=== PATIENT | male | born 1965 | race Caucasian/White ===

== ENCOUNTER 2017-09-12 17:49 | Observation (INO) ==
--- NOTE | 2017-09-12 18:01 | Emergency Department Note ---
Disposition Forms: ED Satisfaction Letter Back Pain HPI - General Chief Complaint: ED Back Pain/Injury Stated Complaint: BACK PAIN Time Seen by Provider: 09/12/17 17:57 - Related Data Home Medications Medication Instructions Recorded Confirmed Losartan [Cozaar] 12.5 mg PO DAILY 11/04/15 11/04/15 Atorvastatin 12/20/16 metFORMIN 12/20/16 Previous Rx's Medication Instructions Recorded Doxycycline 100 mg PO BID #14 capsule 12/20/16 GuaiFENesin/Dextromethorphan 5 ml PO Q6HR PRN #120 syrup 12/20/16 [Robitussin/DM] methylPREDNISolone [Medrol] 4 mg PO TAPER #21 tablet 12/20/16 Docusate Sodium [Colace] 100 mg PO BID PRN #20 capsule 08/22/17 methylPREDNISolone [Medrol] 1 each PO DAILY #1 pack 08/22/17 Allergies Allergy/AdvReac Type Severity Reaction Status Date / Time No Known Allergies Allergy Verified 12/20/16 12:57 Past Medical History - Past Medical History Medical history: Reports: other (spinal stenosis - multiple herniated discs) Surgical history: Reports: other (ablation of nerve in back 13 months ago) Psychiatric history: Reports: no psych history - Social History Smoking Status: Current every day smoker Smokeless Tobacco Status: No Alcohol use: Reports: none Drug use: Reports: marijuana
[2017-09-12] MEDS ORDERED: KETAMINE IVPB ONE (18:25)
[2017-09-12] MEDS ORDERED: 0.9 % Sodium Chloride 1,000 ML IVC ONE (18:25)
[2017-09-12] MEDS ORDERED: SODIUM CHLORIDE 0.9% IVPB ONE (18:25)
[2017-09-12] MEDS ORDERED: Dexamethasone 4 MG/ML VIAL IVP ONE (18:35)
[2017-09-12 18:47] LABS: Basophils % 0.5 %; Eosinophils # 0.2 K/mcL (0.0-0.6); Eosinophils % 2.4 %; Hematocrit 46.9 % (37.5-50.1); Hemoglobin 16.8 g/dL (12.9-16.9); Immature Granulocytes % 0.2 % (0-4); Lymphocytes # 2.5 K/mcL (0.6-4.6); Lymphocytes % 30.2 %; Mean Corpuscular HGB Conc 35.8 g/dL (31.6-35.5); Mean Corpuscular Hemoglobin 30.6 pg (28.0-33.3); Mean Corpuscular Volume 85.4 fL (83.0-100.0); Mean Platelet Volume 9.1 fL (9.4-12.4); Monocytes # 0.5 K/mcL (0.0-1.3); Monocytes % 6.3 %; Neutrophils # 5.1 K/mcL (1.6-8.9); Platelet Count 242 K/mcL (140-400); Red Blood Count 5.49 M/mcL (4.19-5.50); Red Cell Distribution Width 12.8 % (11.5-14.5); Segmented Neutrophils % 60.4 %
--- NOTE | 2017-09-12 18:47 | Emergency Department Note ---
Disposition Clinical Impression: Spinal stenosis Qualifiers: Spinal region: lumbar Neurogenic claudication status: without neurogenic claudication Qualified Code(s): M48.061 - Spinal stenosis, lumbar region without neurogenic claudication Back pain Qualifiers: Back pain location: low back pain Chronicity: acute Back pain laterality: midline Sciatica presence: with sciatica Sciatica laterality: sciatica of right side Qualified Code(s): M54.41 - Lumbago with sciatica, right side Disposition: Admitted As Inpatient Condition: Undetermined Referrals: Walt Killian DO [Primary Care Provider] - Forms: ED Satisfaction Letter Time of Disposition: 19:21 Back Pain HPI - General Chief Complaint: ED Back Pain/Injury Stated Complaint: BACK PAIN Time Seen by Provider: 09/12/17 17:57 Source: patient Mode of arrival: wheelchair Limitations: no limitations Nursing Notes Reviewed: Yes Vital Signs Reviewed: Yes - History of Present Illness HPI Narrative: 52-year-old male with history of chronic back pain arrives to the emergency department with complaint of severe back pain. The patient had an MRI performed 8 days ago and was called today by pain specialist who instructed patient to come to the emergency department immediately for admission. The patient denies any saddle anesthesias, urinary retention, bowel incontinence. The patient denies any other complaints at this time. He does have moderate to severe canal stenosis but no signs of cauda equina syndrome. - Related Data Home Medications Medication Instructions Recorded Confirmed Losartan [Cozaar] 12.5 mg PO DAILY 11/04/15 11/04/15 Atorvastatin 12/20/16 metFORMIN 12/20/16 Previous Rx's Medication Instructions Recorded Doxycycline 100 mg PO BID #14 capsule 12/20/16 GuaiFENesin/Dextromethorphan 5 ml PO Q6HR PRN #120 syrup 12/20/16 [Robitussin/DM] methylPREDNISolone [Medrol] 4 mg PO TAPER #21 tablet 12/20/16 Docusate Sodium [Colace] 100 mg PO BID PRN #20 capsule 08/22/17 methylPREDNISolone [Medrol] 1 each PO DAILY #1 pack 08/22/17 Allergies Allergy/AdvReac Type Severity Reaction Status Date / Time No Known Allergies Allergy Verified 12/20/16 12:57 All systems ED: reviewed and negative except as stated. Constitutional: Denies: fever, chills, weakness ENT ED: Denies: dysphagia Cardiovascular: Denies: chest pain Respiratory: Denies: dyspnea Gastrointestinal: Denies: abdominal pain, nausea, vomiting Genitourinary: Denies: urgency, dysuria Musculoskeletal: Reports: back pain. Denies: neck pain, arthralgia, myalgia Integumentary: Denies: rash Neurological: Reports: paresthesias. Denies: headache, numbness, confusion, abnormal gait Past Medical History - Past Medical History Attestation: Yes The following information was validated with the patient. Source: patient, old records reviewed Medical history: Reports: COPD, diabetes, hyperlipidemia, hypertension Surgical history: Reports: other (ablation of nerve in back 13 months ago) Psychiatric history: Reports: anxiety - Social History Smoking Status: Current every day smoker Smokeless Tobacco Status: No Alcohol use: Reports: rarely Drug use: Reports: marijuana Physical Exam - General Limitations: no limitations General appearance: alert, in distress (Due to pain) - Head Head exam: atraumatic, normocephalic, normal inspection - Eye Eye exam: Present: normal appearance, PERRL, EOMI - ENT ENT exam: normal exam, normal oropharynx, mucous membranes moist - Neck Neck exam: Present: normal inspection, full ROM, trachea midline - Chest Chest inspection: Present: normal inspection, symmetric chest wall rise - Respiratory Respiratory exam: Present: normal lung sounds bilaterally - Cardiovascular Cardiovascular exam: Present: regular rate, normal rhythm, normal heart sounds - Abdominal Exam Abdominal exam: Present: soft, Non-Tender. Absent: tenderness, distention, guarding, rebound, rigidity - Extremities Exam Extremities exam: Present: normal inspection, full ROM. Absent: tenderness, pedal edema - Back Exam Back exam: Present: normal inspection, full ROM. Absent: tenderness - Neurological Exam Neurological exam: Present: alert, oriented X3, CN II-XII intact, normal gait - Expanded Neurological Exam Patient oriented to: Present: person, place, time Speech: Present: fluid speech Cranial nerves: EOM function (II, III, IV, ): Normal, facial sensation (V): Normal, facial palsy (VII): Normal Cerebellar function: normal gait Motor strength - LUE: 4/5 Motor strength - RUE: 4/5 Motor strength - LLE: 4/5 Motor strength - RLE: 4/5 Sensory exam upper extremity: light touch: Normal Sensory exam lower extremity: light touch: Normal Coma Scale Eye Opening: Spontaneous Coma Scale Motor Response: Obeys Commands Coma Scale Verbal Response: Oriented Coma Scale Total: 15 - Skin Skin exam: Present: warm, dry, intact, normal color Course - Consultations Consultation #1: We spoke to Dr. Alan in spinal surgery who stated that it is not a surgical emergency but he recommended admission for pain control. We will admit the patient to the hospital at this time for further workup and care. Patient made aware and agrees to plan. No further questions or concerns noted at this time. Time: 19:14 Vital Signs Temperature 98 F 09/12/17 17:57 Pulse Rate 96 09/12/17 17:57 Respiratory Rate 16 09/12/17 17:57 Blood Pressure 117/81 09/12/17 17:57 O2 Sat by Pulse Oximetry 92 09/12/17 17:57 Temperature 98 F 09/12/17 17:57 Pulse Rate 90 09/12/17 18:55 Respiratory Rate 20 09/12/17 18:55 Blood Pressure 114/81 09/12/17 18:55 O2 Sat by Pulse Oximetry 93 09/12/17 18:55 Oxygen Delivery Oxygen Delivery Room Air Back Pain/Injury - MDM Narrative Medical decision making narrative: Accepted by Dr. Rivera. - Medical Records Medical records reviewed: Yes I reviewed the patient's medical records. - Lab Data Lab results reviewed: Yes I reviewed the patient's lab results. Result diagrams: 09/12/17 18:25 09/12/17 18:25 Lab Results 09/12/17 09/12/17 Range/Units 18:25 18:25 WBC 8.4 (4.3-11.1) K/mcL RBC 5.49 (4.19-5.50) M/mcL Hgb 16.8 (12.9-16.9) g/dL Hct 46.9 (37.5-50.1) % MCV 85.4 (83.0-100.0) fL MCH 30.6 (28.0-33.3) pg MCHC 35.8 H (31.6-35.5) g/dL RDW 12.8 (11.5-14.5) % Plt Count 242 (140-400) K/mcL MPV 9.1 L (9.4-12.4) fL Immature Gran % 0.2 (0-4) % Seg Neutrophils % 60.4 % Lymphocytes % 30.2 % Monocytes % 6.3 % Eosinophils % 2.4 % Basophils % 0.5 % Neutrophils # 5.1 (1.6-8.9) K/mcL Lymphocytes # 2.5 (0.6-4.6) K/mcL Monocytes # 0.5 (0.0-1.3) K/mcL Eosinophils # 0.2 (0.0-0.6) K/mcL Basophils # 0.0 (0.0-0.2) K/mcL Sodium 135 L (136-145) mEq/L Potassium 4.5 (3.5-5.1) mEq/L Chloride 103 (98-107) mEq/L Carbon Dioxide 24 (23-29) mEq/L BUN 13 (6-20) mg/dL Creatinine 0.81 (0.70-1.30) mg/dL Est GFR ( Amer) > 60 (> 60) Est GFR (Non-Af Amer) > 60 (> 60) BUN/Creatinine Ratio 16 (6-26) Glucose 115 H (70-105) mg/dL Calculated Osmolality 281 (280-300) Calcium 10.2 (8.6-10.3) mg/dL Attestation Statement - Attestation Attestation: I examined this patient and my medical decision-making was reviewed with the Resident Physician. I agree with the documented findings, disposition and treatment plan as described except to the extent set forth below. Findings consistent with back pain. No findings of cauda equina at this time. There is some compressive etiologies on MRI and we will proceed with admission for pain control. Ketamine was given for pain control. Patient is neuro intact at this time and a consultation has been initiated with Dr. Alan and spine surgery who agrees the patient has fine for evaluation tomorrow and findings on MRI does not represent surgical emergency at this time.
[2017-09-12 19:07] LABS: BUN/Creatinine Ratio 16 (6-26); Blood Urea Nitrogen 13 mg/dL (6-20); Calcium 10.2 mg/dL (8.6-10.3); Carbon Dioxide 24 mEq/L (23-29); Chloride 103 mEq/L (98-107); Glucose 115 mg/dL (70-105); Osmolality,Calculated 281 (280-300); Potassium 4.5 mEq/L (3.5-5.1); Sodium 135 mEq/L (136-145); eGFR For Non-African Americans > 60 (> 60)
[2017-09-12] MEDS ORDERED: Naloxone 0.4 MG/ML INJ IVP PRN (21:30)
[2017-09-12] MEDS ORDERED: Ibuprofen 400 MG TABLET PO PRN (21:30)
[2017-09-12] MEDS ORDERED: *HR* HYDROcodone/Acet 7.5/325 mg TABLET PO PRN (21:32)
--- NOTE | 2017-09-12 21:33 | Internal Med History&Physical ---
<Walt Killian - Last Filed: 09/12/17 21:55> Date of Encounter: 09/12/17 Time of Encounter: 21:32 Internal Medicine - H&P: HPI Chief complaint: back pain Admitted From: Emergency Dept Plans for Post Hospital Care: Home History of present illness: Mr. Wen is a 52 year old male with past medical history of COPD, diet- controlled diabetes mellitus, hyperlipidemia, hypertension who presents the emergency department complaining of low back pain. He states has been present for approximately 2 weeks although he does have a history of chronic back pain. He was sent from pain management due to concerning findings on MRI obtained on 09/05/17. He states his pain has been worse than normal and he was given 7.5 mg of Percocet and and has not been relieving his pain. He does have a history of multiple ablations in the past most recently 2 years ago. He states he does have difficulty walking and has been essentially bedbound the last 2 weeks however he states it is due to pain but not numbness, tingling, weakness. He states the back pain is located in the lower back bilaterally with radiation down bilateral legs. He does describe the pain as a tingling/burning pain. When he stays still his pain is okay however exacerbated with movement of any kind. Denies any symptoms of chest pain, shortness breath, nausea, vomiting, numbness, tingling. In the emergency department, vitals and labs grossly unremarkable. Dr. Alan was made aware and has agreed to see the patient in the morning. Past medical history as above Past surgical history including ablations Social history: Patient is currently attempting smoking cessation. Denies alcohol or drug use except for occasional marijuana Past Med Surg Social Fam HX - Past Medical History Medical history: COPD, diabetes, hyperlipidemia, hypertension Additional medical history: spinal stenosis Psychiatric history: anxiety - Past Surgical History Surgical History: other (ablation of nerve in back 13 months ago) Additional surgical history: laser surgeries - Social History Smoking Status: Current every day smoker Smokeless Tobacco Status: No Alcohol use: rarely Drug use: marijuana - Family History Father Living Status: Cause of : CHF Hx Family Cardiac Disorders: Yes (CHF) Internal Medicine - H&P: Meds Atorvastatin [Lipitor] 40 mg PO HS 09/12/17 [History] Cyclobenzaprine HCl 5 mg PO TID PRN 09/12/17 [History] Losartan [Cozaar] 25 mg PO DAILY 09/12/17 [History] Meloxicam [Meloxicam] 15 mg PO DAILY 09/12/17 [History] metFORMIN [Glucophage] 500 mg PO BIDWM 09/12/17 [History] 3 Allergy/AdvReac Type Severity Reaction Status Date / Time No Known Allergies Allergy Verified 09/12/17 19:33 All Systems PM: A 10-system review of systems was performed and is negative for pertinent findings except as documented above in the HPI. - Constitutional Constitutional: as per HPI, no fatigue, no fever(s) - Cardiovascular Cardiovascular ROS IM: no chest pain, no dyspnea, no dyspnea on exertion, no edema - Respiratory Respiratory: no dyspnea, no hemoptysis, no dyspnea on exertion, no wheezing - Gastrointestinal Gastrointestinal: no abdominal pain, no nausea, no vomiting - Musculoskeletal Musculoskeletal ROS IM: back pain, no joint swelling, no limited range of motion , no muscle weakness, no numbness, no tingling - Integumentary Integumentary IM: no rash - Neurological Neurological ROS: radicular pain, no focal weakness, no numbness, no tingling, no weakness - Constitutional Vitals: Temp Pulse Resp BP Pulse Ox 98 F 90 20 120/82 93 09/12/17 17:57 09/12/17 19:30 09/12/17 19:55 09/12/17 19:55 09/12/17 19:30 Exam: Gen.: Vitals noted. No acute distress. AAOx3. Resting comfortably in bed HEENT: PERRL/EOMI, oropharynx clear, Normocephalic, atraumatic, MMM Cardiac: RRR, no murmur, +S1/S2 Pulmonary: CTA bilaterally, no wheezes, rales or rhonchi, equal chest expansion Abdomen: soft, nontender, BS noted, no guarding, no rebound. MSK: ROM intact, no joint swelling noted, muscle strength 4/5 in lower extremities. Extremities: no BLE edema, nontender calf, no cyanosis or clubbing Neuro: A&Ox3, moves all extremities, no focal deficits. Neurologically intact including sensation, reflexes lower extremities. Psych: Appropriate mood and behavior Internal Med - H&P Results - Labs CBC & Chem 7: 09/12/17 18:25 09/12/17 18:25 - Assessment and plan (1) Spinal stenosis Current Visit: Yes Status: Acute Assessment and plan: - Known history of chronic low back pain secondary to spinal stenosis - Patient denies previous surgeries over has had multiple ablations most recently approximately 2 years ago - MRI was obtained by pain management on 09/05/17 which shows congenital spinal canal stenosis, L1 and L2 central disc extrusion with inferior migration, mild to moderate stenosis of L2-L3 and L3-L4, moderate stenosis L4-L5. Possible impingement of the left L2 nerve root - Patient is neurologically intact - Dr. Alan was consulted in the emergency department, will see patient tomorrow Plan - Pain control - ADA diet with NPO midnight - Ortho consult as above Qualifiers: Spinal region: lumbar Neurogenic claudication status: without neurogenic claudication Qualified Code(s): M48.061 - Spinal stenosis, lumbar region without neurogenic claudication (2) Back pain Current Visit: Yes Status: Acute Assessment and plan: as above Qualifiers: Back pain location: low back pain Chronicity: acute Back pain laterality : bilateral Sciatica presence: with sciatica Sciatica laterality: sciatica of right side Qualified Code(s): M54.41 - Lumbago with sciatica, right side (3) Diabetes mellitus Current Visit: Yes Status: Acute Assessment and plan: - Known type II diabetic which has been well controlled with metformin - Blood sugar on presentation 114 - Hemoglobin A1c of 7.1% on 09/05/17 - Sliding Scale insulin, ADA diet. NPO midnight Qualifiers: Diabetes mellitus type: type 2 Diabetes mellitus correction insulin use: without correction use Diabetes mellitus complication status: without complication Qualified Code(s): E11.9 - Type 2 diabetes mellitus without complications (4) DVT prophylaxis Current Visit: Yes Status: Acute Assessment and plan: - Heparin 5000 units every 12 hours (5) Hypertension Current Visit: Yes Status: Chronic Assessment and plan: Well-controlled, continue home medications Qualifiers: Hypertension type: essential hypertension Qualified Code(s): I10 - Essential (primary) hypertension - Time Spent With Patient Total time spent is greater than 50% in coordination of care (as documented) at patient's floor/unit and/or counseling patient: <Yang Rivera - Last Filed: 09/12/17 22:22> Date of Encounter: 09/12/17 Internal Medicine - H&P: HPI History of present illness: Mr. Wen is a 52 year old male All Systems PM: A 10-system review of systems was performed and is negative for pertinent findings except as documented above in the HPI. - Constitutional Vitals: Temp Pulse Resp BP Pulse Ox 98 F 90 20 120/82 93 09/12/17 17:57 09/12/17 19:30 09/12/17 19:55 09/12/17 19:55 09/12/17 19:30 Internal Med - H&P Results - Labs CBC & Chem 7: 09/12/17 18:25 09/12/17 18:25 - Attending Attestation I have seen and examined the patient with Dr. Killian and agree with his/ her assessment and plan. 52-year-old male with known history of spinal stenosis status post ablation and epidural injection, with recent MRI done on , presented to the ED with intractable back pain. He states that he was advised to come to ED and "admit himself" by his spine surgeon. No LE weakness/numbness, bowel/urinary incontinence, saddle anesthesia. LAbs unremarkable. Resume pain meds and add oxycodone when necessary for severe pain. Consult placed to spine surgery. Yang Rivera MD - Assessment and plan (1) Spinal stenosis Current Visit: Yes Status: Acute Qualifiers: Spinal region: lumbar Neurogenic claudication status: without neurogenic claudication Qualified Code(s): M48.061 - Spinal stenosis, lumbar region without neurogenic claudication (2) Back pain Current Visit: Yes Status: Acute Qualifiers: Back pain location: low back pain Chronicity: acute Back pain laterality : bilateral Sciatica presence: with sciatica Sciatica laterality: sciatica of right side Qualified Code(s): M54.41 - Lumbago with sciatica, right side (3) DVT prophylaxis Current Visit: Yes Status: Acute (4) Diabetes mellitus Current Visit: Yes Status: Acute Qualifiers: Diabetes mellitus type: type 2 Diabetes mellitus correction insulin use: without correction use Diabetes mellitus complication status: without complication Qualified Code(s): E11.9 - Type 2 diabetes mellitus without complications (5) Hypertension Current Visit: Yes Status: Chronic Qualifiers: Hypertension type: essential hypertension Qualified Code(s): I10 - Essential (primary) hypertension - Time Spent With Patient Total time spent is greater than 50% in coordination of care (as documented) at patient's floor/unit and/or counseling patient:
[2017-09-12] MEDS ORDERED: *HR* Dextrose 50 % in Water (Syg) 50 ML SYRINGE IVP PRN (22:03)
[2017-09-12] MEDS ORDERED: Dextrose Gel 15 GM/37.5 ML TUBE PO PRN ×2 (22:03)
[2017-09-12] MEDS ORDERED: D5% in Water 1,000 ML IVC PRN (22:03)
[2017-09-12] MEDS ORDERED: Nicotine 2 MG GUM BC PRN (22:13)
[2017-09-12] MEDS: *HR* OxyCODONE Immed Rel 5 MG TABLET PO PRN (23:26)
[2017-09-13] MEDS ORDERED: *HR* Heparin 5,000 UNIT/ML VIAL SQ SCH (06:00)
[2017-09-13] MEDS: *HR* OxyCODONE Immed Rel 5 MG TABLET PO PRN (07:31)
[2017-09-13] MEDS: Insulin LISPRO 300 UNITS/3 ML VIAL SQ SCH ×2 (08:36→11:03)
--- NOTE | 2017-09-13 08:37 | Spinal Consult Note ---
Date of Encounter: 09/13/17 Time of Encounter: 08:34 Assessment and Plan (1) Lumbar stenosis without neurogenic claudication Current Visit: Yes Status: Chronic On exam he is sitting upright in bed awake and alert in moderate distress secondary to back pain. Afebrile vital signs stable. He is neurovascularly intact with regard to his bilateral lower extremities. He fires all lower extremity motor groups with good strength. His hips move symmetrically. There is no clonus. Sensation is intact to light touch. All pulses are intact distally. MRI examination of the lumbar spine dated 09/05/2017 reveals multilevel degenerative changes. There is severe stenosis at L1-2 in part due to a disc extrusion. There is multilevel foraminal stenosis seen distally. Impression: 1) lumbar stenosis 2) lumbar radiculopathy Plan: He has done well with lumbar epidural steroid injections and medial branch blocks at previously. He has an interventional procedure with Dr. Malave scheduled for tomorrow. I would discharge him with analgesic medications and plan on his medial branch block as scheduled. He is going to follow-up in my office in 2 weeks. Patient understands if he does not get any relief with interventional treatments he would be an excellent candidate for lumbar decompression in the form of a laminectomy. Patient understands and is amenable to the plan. (2) Lumbar radiculopathy Current Visit: Yes Status: Chronic History of Present Illness Chief complaint: "back pain and pain int he legs" HPI: Mr. Wen is a 52 year old male Well-known to the [facility] whose had long-standing back pain radiating into his bilateral lower extremities intermittently. He had a multitude of interventional treatments including lumbar epidural steroid injections and medial branch blocks by Dr. Elie Malave. He had a recent acute episode in the past several days where he had severe back pain radiating to the lower extremities with any movement or attempts at ambulation. He denies bowel bladder symptomatology or weakness in the lower extremities. Due to his intractable pain he was sent to the emergency department by Dr. Malave for evaluation and admitted for pain control. He has planned medial branch block tomorrow as an outpatient basis with Dr. Malave. He denies any fevers chills. Past Med Surg Social Fam HX - Past Medical History Medical history: COPD, diabetes, hyperlipidemia, hypertension Additional medical history: spinal stenosis Psychiatric history: anxiety - Past Surgical History Surgical History: other (ablation of nerve in back 13 months ago) Additional surgical history: laser surgeries - Social History Smoking Status: Current every day smoker Packs per day: 1 Smokeless Tobacco Status: No Alcohol use: rarely Drug use: marijuana - Family History Father Living Status: Cause of : CHF Hx Family Cardiac Disorders: Yes (CHF) Medications and Allergies Atorvastatin [Lipitor] 40 mg PO HS 09/12/17 [History] Cyclobenzaprine HCl 5 mg PO TID PRN 09/12/17 [History] Losartan [Cozaar] 25 mg PO DAILY 09/12/17 [History] Meloxicam [Meloxicam] 15 mg PO DAILY 09/12/17 [History] metFORMIN [Glucophage] 500 mg PO BIDWM 09/12/17 [History] 3 Allergy/AdvReac Type Severity Reaction Status Date / Time No Known Allergies Allergy Verified 09/12/17 19:33 Results - Labs Result Diagrams: 09/12/17 18:25 09/12/17 18:25 Labs: Abnormal lab results MCHC 35.8 g/dL (31.6-35.5) H 09/12/17 18:25 MPV 9.1 fL (9.4-12.4) L 09/12/17 18:25 Sodium 135 mEq/L (136-145) L 09/12/17 18:25 Glucose 115 mg/dL (70-105) H 09/12/17 18:25 POC Glucose 168 mg/dL (70-99) H 09/12/17 23:55 All other labs normal. Consult Discharge Plan - Plan Referrals: Walt Killian DO [Primary Care Provider] -
--- NOTE | 2017-09-13 11:39 | Discharge Summary ---
- NOTES TO OUTPATIENT PROVIDER Notes to Outpatient Provider: Acute on chronic low back pain, spinal stenosis, to get ablation procedure tomorrow with pain management; Date of Encounter: 09/13/17 Time of Encounter: 11:33 - Discharge Diagnosis (1) Spinal stenosis Priority: Primary Status: Acute Qualifiers: Spinal region: lumbar Neurogenic claudication status: without neurogenic claudication Qualified Code(s): M48.061 - Spinal stenosis, lumbar region without neurogenic claudication (2) Diabetes mellitus Priority: Secondary Status: Chronic Qualifiers: Diabetes mellitus type: type 2 Diabetes mellitus residential insulin use: without watermelon inspector use Diabetes mellitus complication status: without complication Qualified Code(s): E11.9 - Type 2 diabetes mellitus without complications (3) Hypertension Priority: Secondary Status: Chronic Qualifiers: Hypertension type: essential hypertension Qualified Code(s): I10 - Essential (primary) hypertension (4) Tobacco abuse Priority: Secondary Status: Chronic (5) COPD (chronic obstructive pulmonary disease) Priority: Secondary Status: Chronic Qualifiers: COPD type: unspecified COPD Qualified Code(s): J44.9 - Chronic obstructive pulmonary disease, unspecified Hospital course: Mr. Wen is a 52 year old male with chronic back pain and spinal stenosis, who was admitted with acute severe low back pain. He was also referred by Pain management due to abnormal MRI results. MRI L-spine from 09/05/17 showed congenital spinal canal stenosis, central disc extrusion at L1-2, possible impingement of L2 nerve root, mil-moderate stenosis at L2-3, L3-4 and L4-5. He was given supportive care and pain control. Spine surgery was consulted and recommended discharge home with analgesics, for scheduled medial branch ablation procedure tomorrow with Pain Management. He will be evaluated for possible laminectomy in the future if ablation fails. He is otherwise medically stable. Discharge discussed with: patient, nurse - Time Spent with Patient Total time spent providing and/or coordinating discharge services: Greater than 30 minutes (40 min) - Discharge Medications Prescriptions: OxyCODONE Immed Rel [Roxicodone 5 MG] 10 mg PO Q6HR PRN 5 Days #15 tablet PRN Reason: Severe Pain Home Medications: Atorvastatin [Lipitor] 40 mg PO HS 09/12/17 [History] Cyclobenzaprine HCl 5 mg PO TID PRN 09/12/17 [History] Losartan [Cozaar] 25 mg PO DAILY 09/12/17 [History] Meloxicam 15 mg PO DAILY 09/12/17 [History] metFORMIN [Glucophage] 500 mg PO BIDWM 09/12/17 [History] OxyCODONE Immed Rel [Roxicodone 5 MG] 10 mg PO Q6HR PRN 5 Days #15 tablet [Rx] Allergies/Adverse Reactions: 3 Allergy/AdvReac Type Severity Reaction Status Date / Time No Known Allergies Allergy Verified 09/12/17 19:33 Date of admission: 09/12/17 19:29 Primary care physician: Walt Killian DO Consults: 09/12/17 23:29 Consult to Orthopedic Surgery [CONS] Routine Consulting Provider: [facility] Reason for Consult: spinal stenosis, patient of Dr. Malave scheduled for intervention this Call Completed: Yes Discharging clinician: Heidy Thornton Anticipated date of discharge: 09/13/17 - Constitutional Vitals: Temp Pulse Resp BP Pulse Ox 99.2 F 83 16 137/84 91 09/13/17 06:43 09/13/17 06:48 09/13/17 06:48 09/13/17 06:48 09/13/17 06:48 General appearance: Present: mild distress (moderate distress due to pain), A&O X 3 - Cardiovascular Cardiovascular exam: Present: RRR, +S1, +S2. Absent: diastolic murmur, gallop, rubs, systolic murmur - Patient Status Disposition: Home, Self-Care Condition: Fair Functional capacity at discharge: independent ambulation Overall status at discharge: patient is progressing back to baseline - Discharge Instructions Follow Up With: Burak Alan Jr, MD [Partnered Physician] - 09/28/17 1:15 pm Walt Killian DO [Primary Care Provider] - Additional Instructions: F/up with on 09/14/2017 for spinal ablation procedure - Diet and Activity Activity: increase activity as tolerated Diet: low fat, low cholesterol, low salt diet
[2017-09-13 12:00] VITALS: BP 126/79
== END 2017-09-13 14:56 | disposition home or self-care (01) ==
LOC: 3NENU 17:49 → EMEROO 17:49 → SUATTDRO 19:29 → 3NENU 19:56
PROVIDERS: ADMIT Internal Medicine; ATTEND Internal Medicine

== ENCOUNTER 2017-10-02 08:18 | Observation (INO) ==
[2017-10-02] MEDS ORDERED: CeFAZolin Syr 2,000MG/20 ML 2,000 MG/20 ML SYRINGE IVPB ONE (09:45)
[2017-10-02 10:43] LABS: Basophils # 0.1 K/mcL (0.0-0.2); Basophils % 0.9 %; Eosinophils # 0.2 K/mcL (0.0-0.6); Eosinophils % 2.2 %; Hematocrit 46.9 % (37.5-50.1); Hemoglobin 16.3 g/dL (12.9-16.9); Immature Granulocytes % 0.1 % (0-4); Lymphocytes # 2.3 K/mcL (0.6-4.6); Lymphocytes % 34.1 %; Mean Corpuscular HGB Conc 34.8 g/dL (31.6-35.5); Mean Corpuscular Volume 89.3 fL (83.0-100.0); Mean Platelet Volume 9.4 fL (9.4-12.4); Monocytes # 0.6 K/mcL (0.0-1.3); Monocytes % 8.1 %; Neutrophils # 3.7 K/mcL (1.6-8.9); Platelet Count 244 K/mcL (140-400); Red Blood Count 5.25 M/mcL (4.19-5.50); Red Cell Distribution Width 12.6 % (11.5-14.5); Segmented Neutrophils % 54.6 %
[2017-10-02 10:48] LABS: Prothrombin Time 11.3 Seconds (9.4-12.1)
[2017-10-02 11:02] LABS: BUN/Creatinine Ratio 21 (6-26); Blood Urea Nitrogen 14 mg/dL (6-20); Calcium 9.7 mg/dL (8.6-10.3); Carbon Dioxide 29 mEq/L (23-29); Chloride 103 mEq/L (98-107); Glucose 115 mg/dL (70-105); Osmolality,Calculated 285 (280-300); Potassium 3.7 mEq/L (3.5-5.1); Sodium 137 mEq/L (136-145); eGFR For Non-African Americans > 60 (> 60)
[2017-10-02 11:32] LABS: Estimated Average Glucose 146 mg/dl; Hemoglobin A1C 6.7 %
[2017-10-02] MEDS: OXYCODONE Oral CONC 10 MG/0.5 ML ORAL.SYG SL PRN ×3 (12:17→21:57)
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
[2017-10-02] MEDS: Ringers Solution, Lactated 1,000 ML IVC SCH (13:59)
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
[2017-10-02] MEDS ORDERED: Dextrose Gel 15 GM/37.5 ML TUBE PO PRN ×2 (17:10)
[2017-10-02] MEDS ORDERED: D5% in Water 1,000 ML IVC PRN (17:10)
[2017-10-02] MEDS ORDERED: *HR* Dextrose 50 % in Water (Syg) 50 ML SYRINGE IVP PRN (17:10)
[2017-10-02 17:28] LABS: Alanine Aminotransferase 25 Units/L (7-52); Albumin 4.2 g/dL (3.5-5.7); Albumin/Globulin Ratio 1.8 (1.1-2.2); Alkaline Phosphatase 50 Units/L (34-104); Aspartate Amino Transferase 18 Units/L (13-39); Bilirubin,Direct 0.1 mg/dL (0.0-0.2); Bilirubin,Indirect 0.4 mg/dL (0.0-1.2); Bilirubin,Total 0.5 mg/dL (0.3-1.0); Globulin 2.3 g/dL (2.4-3.5); Total Protein 6.5 g/dL (6.4-8.9)
[2017-10-02] MEDS: Insulin LISPRO 300 UNITS/3 ML VIAL SQ SCH (17:57)
[2017-10-02] MEDS ORDERED: Levofloxacin 750 MG/150 ML 750 MG/150 ML BAG IVPB SCH (18:00)
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
[2017-10-03] MEDS: Insulin LISPRO 300 UNITS/3 ML VIAL SQ SCH ×2 (00:32→06:54)
[2017-10-03] MEDS: Ringers Solution, Lactated 1,000 ML IVC SCH (00:45)
[2017-10-03] MEDS: OXYCODONE Oral CONC 10 MG/0.5 ML ORAL.SYG SL PRN ×3 (02:35→10:41)
[2017-10-03] MEDS ORDERED: Lidocaine -MPF 2% 2 ML VIAL ONE (06:59)
[2017-10-03] MEDS ORDERED: Ondansetron 4 MG/2 ML VIAL ONE (06:59)
[2017-10-03] MEDS ORDERED: Lidocaine -MPF 4% 5 ML AMPUL ONE (06:59)
[2017-10-03] MEDS ORDERED: Dexamethasone 4 MG/ML VIAL ONE (06:59)
[2017-10-03] MEDS ORDERED: *HR* Succinylcholine 200 MG/10 ML VIAL IVP ONE (06:59)
[2017-10-03] MEDS ORDERED: *HR* Propofol 200 MG/20 ML VIAL IVP ONE (06:59)
[2017-10-03] MEDS ORDERED: *HR* FentaNYL (PF) 100 MCG/2 ML VIAL ONE (06:59)
[2017-10-03] MEDS ORDERED: *HR* Midazolam HCl 2 MG/2 ML VIAL ONE (06:59)
[2017-10-03] MEDS ORDERED: Water for inj. (sterile) 10 ML IV ONE (07:20)
[2017-10-03] MEDS ORDERED: Acetaminophen IV 1,000 MG/100 ML INFUS..BTL ONE (07:32)
[2017-10-03] MEDS ORDERED: Bacitracin 50,000 UNIT, Polymyxin B Sulfate 500,000 UNIT, Sodium Chloride IRRigation 1,... IR ONE (07:45)
[2017-10-03] MEDS ORDERED: Dexmedetomidine HCl 400 MCG/100 ML MLS IVC ONE (07:55)
[2017-10-03] MEDS ORDERED: EPHEDrine 50 MG/ML VIAL ONE (08:34)
[2017-10-03] MEDS ORDERED: *HR* PHENYLEPHRINE 1,000 MCG/10 ML SYRINGE IVP ONE (08:40)
[2017-10-03] MEDS ORDERED: *HR* Labetalol 20 MG/4 ML SYRINGE IVP PRN (08:49)
[2017-10-03] MEDS ORDERED: *HR* Promethazine 25 MG/ML VIAL IVP PRN (08:49)
[2017-10-03] MEDS ORDERED: Dexamethasone 4 MG/ML VIAL IVP ONE (08:49)
[2017-10-03] MEDS ORDERED: Ondansetron 4 MG/2 ML VIAL IVP ONE (08:49)
--- NOTE | 2017-10-03 09:44 | Orthopedic Operative Note ---
Date of procedure: 10/03/17 Pre-op diagnosis: Lumbar stenosis, leg weakness, lumbar radiculopathy, gait disturbance Post-op diagnosis: same Operation/Findings: Laminectomy T12-L2: The patient was brought to the operative theater where he underwent general endotracheal anesthesia. He was given antibiotics prior to the start of the procedure. Compression boots and stockings were used for deep vein thrombosis prophylaxis. The patient was placed prone on a Willis table. The back was prepped and draped in the usual sterile fashion. An incision was marked and centered over the T4-L2 interspaces in the midline. We used Bovie cautery to make an incision and then this incision was deepened through the lumbar fascia. Bovie cautery and Aponte elevators were used to reflect the paraspinal musculature to the lateral extent of the T12-L1 and L1-L2 facet joints bilaterally. Adriana clamps were placed over the spinous processes of L1 and L2 and an intraoperative lateral fluorograph was obtained. A discusssion was held between the radiologist and surgeon who both confirmed we were at the correct operative level. We then removed the supraspinous and interspinous ligaments between T12 and L1 and subsequently removed the ligamentum flavum from its origin on the distal undersurface of the T12 lamina. We performed a laminectomy of T12 with undercutting of the facets to decompress the lateral recesses. We moved distally and performed a partial proximal laminectomy of L2. After the decompression was complete we checked the foramen and the traversing nerve roots at T12-L1 and they were found to be free and patent. We probed the lateral recesses from T12 to the proximal portion of L2 and they were found to be free of disc material and obstruction. We copiously irrigated the wound and then closed the wound in layers with 1 Vicryl for the fascia, 2-0 Vicryl for the subcutaneous tissue, and Dermabond was used for skin closure. Sterile dressings were placed over the wound, the patient was turned supine in a hospital bed, and was extubated in the operative theater. All sponge needles and instrument counts were correct at the end of the procedure. The patient tolerated the procedure well without complications. Anesthesia: GETA Surgeon: Burak Alan Jr Was there an physician assistant certified present: No Estimated blood loss (cc): 20 Specimen: None Condition: stable Disposition: PACU
[2017-10-03] MEDS: *HR* HYDROmorphone (PF) 1 MG/ML SYRINGE IVP PRN ×4 (10:09→10:30)
[2017-10-03] MEDS ORDERED: *HR* HYDROmorphone (PF) 1 MG/ML SYRINGE IVP ONE (10:57)
--- NOTE | 2017-10-03 11:19 | Anesthesia Evaluation Post Op ---
Date of Encounter: 10/03/17 Time of Encounter: 11:19 - Vital Signs Vital Signs: Vital Signs/O2 Sat/Glucose, Most Recent Temp Pulse Resp BP Pulse Ox 98.2 F 111 16 128/82 93 10/03/17 10:47 10/03/17 10:57 10/03/17 10:57 10/03/17 10:57 10/03/17 10:57 Blood Glucose* 130 - Lungs Lungs: Clear Ascult./Percussion - Airway Airway: Non-obstructed - Cardiovascular Regular Rate - Pain Pain Scale: 4 Pain Scale used: Numeric (1 - 10) - Nausea Vomiting Nausea Vomiting: Not Present - Hydration Hydration: Ice chips - Discharge PostOp Status: Transfer Patient to floor
[2017-10-03] MEDS ORDERED: Naloxone 0.4 MG/ML INJ IVP PRN (11:35)
[2017-10-03] MEDS ORDERED: Ringers Solution, Lactated 1,000 ML IVC SCH (11:35)
[2017-10-03] MEDS ORDERED: Ondansetron 4 MG/2 ML VIAL IVP PRN (11:35)
[2017-10-03] MEDS: *HR* OxyCODONE Immed Rel 5 MG TABLET PO PRN ×3 (14:31→23:27)
[2017-10-03] MEDS: *HR* Metformin 500 MG TABLET PO SCH (17:17)
[2017-10-03] MEDS: diazePAM 5 MG TABLET PO PRN (21:08)
[2017-10-04] MEDS: *HR* OxyCODONE Immed Rel 5 MG TABLET PO PRN ×3 (03:41→12:32)
[2017-10-04] MEDS: diazePAM 5 MG TABLET PO PRN ×2 (05:00→13:17)
[2017-10-04] MEDS ORDERED: Acetaminophen IV 1,000 MG/100 ML INFUS..BTL IVPB PRN (05:30)
[2017-10-04] MEDS: *HR* Metformin 500 MG TABLET PO SCH (07:56)
--- NOTE | 2017-10-04 08:13 | Electrocardiograph Report ---
[address] [address] Test Date: 2017-10-02 Pat Name: Hang Wen Department: 114 Room: [facility] Gender: M Drencher: J LUIS : 1965 Requested By: Burak Alan Order Number: [id number] Reading MD: Sharita Jorgensen Measurements Intervals [place] Rate: 92 P: 9 W[place]: 157 QRS: 7 QRSD: 84 T: 44 QT: 345 QTc: 395 Interpretive Statements SINUS RHYTHM Electronically Signed On 10-04-2017 8:11:52 EDT by Sharita Jorgensen
--- NOTE | 2017-10-04 10:47 | Discharge Summary ---
- NOTES TO OUTPATIENT PROVIDER Notes to Outpatient Provider: Follow-up in 2 weeks in [facility] Orders not resulted at time of discharge: Pending orders 10/02/17 09:11 MRSA Surveillance Screen [MOLMIC] Stat 10/03/17 08:36 XR lumbar spine 1V [XR] Routine Date of Encounter: 10/04/17 Time of Encounter: 10:45 - Discharge Diagnosis (1) Bilateral leg weakness Priority: Secondary Status: Chronic - Hospital Course Hospital course: Mr. Wen is a 52 year old male The patient had an uneventful postoperative course. Progressed from intravenous analgesic needs to oral analgesic needs only. Remained neurovascularly intact and mobilized satisfactorily. All intraoperative and/or postoperative radiographic studies were satisfactory. Patient is discharged with plan for home rehabilitation and follow-up in 2 weeks post discharge on analgesic medication and patient's home medications. - Time Spent with Patient Total time spent providing and/or coordinating discharge services: - Discharge Medications Prescriptions: OxyCODONE Immed Rel [Roxicodone 5 MG] 5 mg PO Q4HR PRN 7 Days #30 tablet PRN Reason: Pain Home Medications: Atorvastatin [Lipitor] 40 mg PO HS 09/12/17 [History] Cyclobenzaprine HCl 5 mg PO TID PRN 09/12/17 [History] Losartan [Cozaar] 25 mg PO DAILY 09/12/17 [History] Meloxicam 15 mg PO DAILY 09/12/17 [History] metFORMIN [Glucophage] 500 mg PO BIDWM 09/12/17 [History] Bisacodyl [Dulcolax] 5 mg PO DAILY PRN 10/02/17 [History] OxyCODONE/APAP 5/325 [Percocet 5/325 MG] 1 tab PO Q6HR PRN 10/02/17 [History] OxyCODONE Immed Rel [Roxicodone 5 MG] 5 mg PO Q4HR PRN 7 Days #30 tablet [Rx] Allergies/Adverse Reactions: 3 Allergy/AdvReac Type Severity Reaction Status Date / Time No Known Allergies Allergy Verified 10/02/17 13:22 Date of admission: 10/02/17 09:14 Primary care physician: PCP NONE Consults: 10/03/17 11:35 Consult to Nurse Navigator [CONS] Routine Comment: spine navigator Consult to Occupational Therapy [CONS] Routine Comment: Evaluate, develop and implement POC Reason for Consult: Postoperative rehabilitation Does patient have active BEDREST order?: No Is patient medically & hemodynamically stable?: Yes Patient assessed for mobility or mobilized this visit?: No Consult to Physical Therapy [CONS] Routine Comment: Evaluate, develop and implement POC Reason for Consult: Postoperative rehabilitation Does patient have active BEDREST order?: No Is patient medically & hemodynamically stable?: Yes Patient assessed for mobility or mobilized this visit?: No - VTE Documentation of Mechanical Device: Intermittent pneumatic compression device Labs on day of discharge: Labs from last 24 hours 10/03/17 10/03/17 10/03/17 20:07 16:01 11:37 POC Glucose 155 H 194 H 146 H 10/03/17 06:23 POC Glucose 121 H - Impressions ITS Impressions Chest X-Ray 10/02/17 09:11 IMPRESSION: Mild cardiomegaly. Low lung volumes. Increased lung markings, may be related to mild bronchitis or mild pulmonary vascular congestion. D/ / Davian Hendrix MD / Davian Hendrix MD Interpreting Provider: Davian Hendrix MD Fluoroscopy 10/03/17 08:36 IMPRESSION: Intraprocedural fluoroscopic spot images as above. See separate procedure report for more information. D/ / Danie Adams MD / Danie Adams MD Interpreting Provider: Danie Adams MD - Patient Status Disposition: Home Health Service Condition: Good Functional capacity at discharge: uses cane/walker Overall status at discharge: patient is progressing back to baseline - Discharge Instructions Follow Up With: NONE,PCP [Primary Care Provider] - - Diet and Activity Activity: as per physical therapy Diet: advance to your usual diet
[2017-10-04 11:05] VITALS: BP 123/68
== END 2017-10-04 16:52 | disposition home health service (06) ==
LOC: 3NENU
PROVIDERS: ADMIT Orthopaedic Surgery Orthopaedic Surgery of the Spine; ATTEND Orthopaedic Surgery Orthopaedic Surgery of the Spine